=== PATIENT | female | born 1995 | race American Indian/Alaskan Native ===

== ENCOUNTER 2020-06-04 18:27 | Emergency (ER) | payer MEDICAID ==
--- NOTE | 2020-06-04 19:04 | Emergency Department Report ---
Blank Doc - Documentation Documentation: 25-year-old female that presents with heavy vaginal bleeding and fatigue. This initial assessment/diagnostic orders/clinical plan/treatment(s) is/are subject to change based on patient's health status, clinical progression and re- assessment by fellow clinical providers in the ED. Further treatment and workup at subsequent clinical providers discretion. Patient/guardians urged not to elope from the ED as their condition may be serious if not clinically assessed and managed. Initial orders include: 1- Patient sent to [facility] for further evaluation and treatment 2- labs r/o anemia
[2020-06-04 19:05] VITALS: BP 110/63
[2020-06-04 19:52] LABS: Bilirubin,Urine NEG (Negative); Blood,Urine SM (Negative); Color,Urine Yellow (Yellow); Mucus,Urine 2+ /HPF; Protein,Urine <15 mg/dL mg/dL (Negative)
[2020-06-04 19:54] LABS: Basophils % (Auto) 0.6 % (0.0-1.8); Eosinophils # (Auto) 0.1 K/mm3 (0.0-0.4); Eosinophils % (Auto) 1.4 % (0.0-4.3); Hematocrit 32.9 % (30.3-42.9); Hemoglobin 10.9 gm/dl (10.1-14.3); Lymphocytes # (Auto) 2.1 K/mm3 (1.2-5.4); Lymphocytes % (Auto) 33.3 % (13.4-35.0); Mean Corpuscular HGB Conc 33 % (30-34); Mean Corpuscular Volume 93 fl (79-97); Monocytes # (Auto) 0.5 K/mm3 (0.0-0.8); Monocytes % (Auto) 8.1 % (0.0-7.3); Platelet Count 286 K/mm3 (140-440); Red Blood Count 3.54 M/mm3 (3.65-5.03); Red Cell Distribution Width 13.1 % (13.2-15.2)
[2020-06-04 20:01] LABS: BUN/Creatinine Ratio 20; Blood Urea Nitrogen 16 mg/dL (7-17); Calcium 9.2 mg/dL (8.4-10.2); Hemolysis Index 1
[2020-06-04] MEDS ORDERED: medroxyPROGESTERone ACETATE 5 MG TAB PO ONE (20:42)
--- NOTE | 2020-06-04 21:26 | Emergency Department Report ---
ED Female HPI - General Chief complaint: Vaginal Bleeding Stated complaint: HEAVY BLEEDING Time Seen by Provider: 06/04/20 19:02 Source: patient Mode of arrival: Ambulatory Limitations: No Limitations - History of Present Illness Initial comments: Patient is a A0 25-year-old -[place] female with no past medical history presents to the ED with complaint of acute onset persistent heavy vaginal bleeding for the last 12 hours with generalized weakness. Patient states that this is the first time she is having heavy menstrual cycle and that she has failed up to 10 pads in the last 12 hours. Patient states that she has an implanted Nexplanon on her left upper arm which was placed in 2018 and that since this was placed she has never had such heavy bleeding. Patient states that she has been dealing with a lot of family stress in the last 3 weeks and suspect this may be the cause of her heavy vaginal bleeding. Patient denies abdominal pain, syncope, headache, dizziness, nausea and vomiting, dysuria, urinary frequency and urgency, change in vision, vaginal discharge or low back pain, fever and chills. MD Complaint: vaginal bleeding -: Sudden, hour(s) (12) Location: other (vaginal) Radiation: non-radiating Severity: severe Severity scale (0 -10): 1 Quality: dull Consistency: intermittent Improves with: none Worsens with: none Are you Now?: No Last Menstrual Period: 05/30/19 EDC: 03/05/20 Associated Symptoms: denies other symptoms, vaginal bleeding. denies: abdominal pain, nausea/vomiting, fever/chills, headaches, loss of appetite, hematuria, rash, seizure, shortness of breath, syncope, weakness - Related Data Sexually active: Yes : 3 Para: 3 A: 0 Previous Rx's Medication Instructions Recorded Last Taken Type medroxyPROGESTERone ACETATE 10 mg PO DAILY #10 tablet 06/04/20 Unknown Rx [Medroxyprogesterone Acetate] Allergies Allergy/AdvReac Type Severity Reaction Status Date / Time No Known Allergies Allergy Unverified 06/04/20 19:05 ED Review of Systems ROS: Stated complaint: HEAVY BLEEDING Other details as noted in HPI Constitutional: denies: chills, fever Eyes: denies: eye pain, eye discharge, vision change ENT: denies: ear pain, throat pain Respiratory: denies: cough, shortness of breath, wheezing Cardiovascular: denies: chest pain, palpitations Endocrine: no symptoms reported Gastrointestinal: denies: abdominal pain, nausea, diarrhea Genitourinary: abnormal menses (heavy vaginal bleeding). denies: urgency, dysuria, discharge Musculoskeletal: denies: back pain, joint swelling, arthralgia Skin: denies: rash, lesions Neurological: denies: headache, weakness, paresthesias Psychiatric: denies: anxiety, depression Hematological/Lymphatic: denies: easy bleeding, easy bruising ED Past Medical Hx - Past Medical History Previous Medical History?: No - Surgical History Past Surgical History?: No - Social History Smoking Status: Never Smoker Substance Use Type: None - Medications Home Medications: Home Medications Medication Instructions Recorded Confirmed Last Taken Type medroxyPROGESTERone ACETATE 10 mg PO DAILY #10 tablet 06/04/20 Unknown Rx [Medroxyprogesterone Acetate] ED Physical Exam - General Limitations: No Limitations General appearance: alert, in no apparent distress - Head Head exam: Present: atraumatic, normocephalic, normal inspection - Eye Eye exam: Present: normal appearance, PERRL, EOMI Pupils: Present: normal accommodation - ENT ENT exam: Present: normal exam, normal orophraynx, mucous membranes moist, TM's normal bilaterally, normal external ear exam - Neck Neck exam: Present: normal inspection, full ROM - Respiratory Respiratory exam: Present: normal lung sounds bilaterally. Absent: respiratory distress, wheezes, rales, rhonchi, chest wall tenderness, accessory muscle use, decreased breath sounds, prolonged expiratory - Cardiovascular Cardiovascular Exam: Present: regular rate, normal rhythm, normal heart sounds. Absent: systolic murmur, diastolic murmur, rubs, gallop - GI/Abdominal GI/Abdominal exam: Present: soft, normal bowel sounds. Absent: tenderness, guarding, hyperactive bowel sounds, hypoactive bowel sounds, organomegaly - Bi-manual exam: Present: other (Pelvic exam deferred, patient preference) - Extremities Exam Extremities exam: Present: normal inspection, full ROM, normal capillary refill - Back Exam Back exam: Present: normal inspection, full ROM. Absent: tenderness, CVA ten derness (R), CVA tenderness (L), muscle spasm, vertebral tenderness - Neurological Exam Neurological exam: Present: alert, oriented X3, CN II-XII intact, normal gait, reflexes normal - Psychiatric Psychiatric exam: Present: normal affect, normal mood - Skin Skin exam: Present: warm, dry, intact, normal color. Absent: rash ED Course Vital Signs 06/04/20 19:02 Temperature 98.1 F Pulse Rate 83 Respiratory 18 Rate Blood Pressure 110/63 O2 Sat by Pulse 100 Oximetry ED Medical Decision Making - Lab Data Result diagrams: 06/04/20 19:17 06/04/20 19:17 - Medical Decision Making This is a A0 25-year-old -[place] female with no past medical history presents to the ED with complaint of acute onset persistent heavy vaginal bleeding for the last 12 hours with generalized weakness. Patient states that this is the first time she is having heavy menstrual cycle and that she has failed up to 10 pads in the last 12 hours. Patient states that she has an implanted Nexplanon on her left upper arm which was placed in 2018 and that since this was placed she has never had such heavy bleeding. Patient states that she has been dealing with a lot of family stress in the last 3 weeks and suspect this may be the cause of her heavy vaginal bleeding. In the ED, patient is alert and oriented x3 and is not in distress. Patient resting comfortably while eating chips during the physical exam, and she is hemodynamically stable. Lab test results were reviewed and are all nonactionable. Patient was di scharged home on medications and advised to follow-up with [facility] physician in 3 to 5 days for reevaluation or return to the ED immediately if symptoms get worse. - Differential Diagnosis Dysfunctional uterine bleed; Menorrhagia; Metrorrhagia; UTI; Fibroids Critical care attestation.: If time is entered above; I have spent that time in minutes in the direct care of this critically ill patient, excluding procedure time. ED Disposition Clinical Impression: Menorrhagia with irregular cycle, Metrorrhagia, Dysfunctional uterine hemorrhage Disposition: DC-01 TO HOME OR SELFCARE Is pt being admited?: No Does the pt Need Aspirin: No Condition: Stable Instructions: Menorrhagia (ED), Dysfunctional Uterine Bleeding (ED) Additional Instructions: All lab test results are unremarkable. Therefore take medication as advised, drink plenty of fluids and follow-up with your [facility] physician in 3 to 5 days for reevaluation. Return to the ED immediately if symptoms get worse. Prescriptions: medroxyPROGESTERone ACETATE [Medroxyprogesterone Acetate] 10 mg PO DAILY #10 tablet Referrals: KATI SIM MD [Staff Physician] - 3-5 Days Forms: Work/School Release Form(ED) Time of Disposition: 21:28 Print Language: QATARI
== END 2020-06-04 21:40 | disposition home or self-care (01) ==
LOC: ED 18:27
DX: N92.0 Excessive and frequent menstruation with regular cycle (principal); N92.1 Excessive and frequent menstruation with irregular cycle; Z79.899 Other long term (current) drug therapy
CPT/HCPCS: 36415; 80048; 81001; 84703; 85025

== ENCOUNTER 2021-04-24 09:11 | Emergency (ER) | payer MEDICAID ==
[2021-04-24 09:30] VITALS: BP 113/72
[2021-04-24] MEDS ORDERED: LIDOCAINE (1%) 10 MG/1 ML VIAL 20 ML MDV INFILTRATI ONE (12:42)
[2021-04-24] MEDS ORDERED: TETANUS,DIPH,PERTUSS(ACELL) VACCINE 0.5 ML SYRINGE IM ONE (12:42)
--- NOTE | 2021-04-24 12:46 | Emergency Department Report ---
ED General Adult HPI - General Chief complaint: Wound/Laceration Stated complaint: cut on rt hand Time Seen by Provider: 04/24/21 11:51 Source: patient Mode of arrival: Ambulatory Limitations: No Limitations - History of Present Illness Initial comments: 26-year-old -[place] female patient presents with complaints of right hand laceration today. Patient states while at work, she fell and hit her hand on the side of the palate. She is unsure of her last tetanus vaccination. No numbness/tingling or difficulty moving the hand per patient. -: Sudden Severity scale (0 -10): 5 - Related Data Previous Rx's Medication Instructions Recorded Last Taken Type medroxyPROGESTERone ACETATE 10 mg PO DAILY #10 tablet 06/04/20 Unknown Rx [Medroxyprogesterone Acetate] Mupirocin [Bactroban 2% OINT] 1 applic TP TID 7 Days #1 tube 04/24/21 Unknown Rx Allergies Allergy/AdvReac Type Severity Reaction Status Date / Time No Known Allergies Allergy Verified 04/24/21 09:25 ED Review of Systems ROS: Stated complaint: cut on rt hand Other details as noted in HPI Musculoskeletal: denies: joint swelling, arthralgia Skin: denies: change in color Neurological: denies: numbness, paresthesias ED Past Medical Hx - Past Medical History Previous Medical History?: No - Surgical History Past Surgical History?: No - Social History Smoking Status: Never Smoker Substance Use Type: None - Medications Home Medications: Home Medications Medication Instructions Recorded Confirmed Last Taken Type medroxyPROGESTERone ACETATE 10 mg PO DAILY #10 tablet 06/04/20 Unknown Rx [Medroxyprogesterone Acetate] Mupirocin [Bactroban 2% OINT] 1 applic TP TID 7 Days #1 tube 04/24/21 Unknown Rx ED Physical Exam - General Limitations: No Limitations General appearance: alert, in no apparent distress - Head Head exam: Present: atraumatic, normocephalic - Eye Eye exam: Present: normal appearance. Absent: scleral icterus - Respiratory Respiratory exam: Absent: respiratory distress - Cardiovascular Cardiovascular Exam: Present: regular rate - Neurological Exam Neurological exam: Present: alert, oriented X3, normal gait - Psychiatric Psychiatric exam: Present: normal affect, normal mood - Skin Skin exam: Present: warm, dry, normal color. Absent: intact (Approximately 2 cm laceration noted to right little medial palm without obvious foreign body, swelling, or active bleeding; patient has full range of motion of the hand and fingers and normal perfusion), rash ED Course Vital Signs 04/24/21 09:28 Temperature 98.7 F Pulse Rate 71 Respiratory 18 Rate Blood Pressure 113/72 [Right] O2 Sat by Pulse 97 Oximetry - Laceration /Wound Repair Hand Wound's Depth, Shape: linear Wound Explored: clean Irrigated w/ Saline (ccs): 60 Anesthesia: 1% Lidocaine Volume Anesthetic (ccs): 4 Wound Repaired With: sutures Number of Sutures: 5 (Continuous) Layer Closure?: No Sterile Dressing Applied?: Yes Progress: Minimal bleeding occurred. Patient tolerated procedure well without any immediate complications. ED Medical Decision Making - Medical Decision Making 40-year-old -[place] female patient presents with complaints of left upper thigh pain and groin pain x5 days. She reports the pain feels similar to when she had a DVT 4 years ago. She is not currently on blood thinners. She denies any leg swelling, recent long travel, chest pain/shortness of breath/hemoptysis, difficulty moving her leg, numbness/tingling/weakness in the leg. Or injury to the leg. She states the pain is achy and rates it as a 5/10 in severity. Pain occurs mostly with movement and to touch. Patient also admits to some urinary frequency over the past few days without dysuria, hematuria, vaginal discharge, or dyspareunia. Laceration repaired patient tolerated procedure well without any immediate complications. Tetanus vaccine updated today. Prescription for mupirocin given. Discussed wound care and signs and symptoms that should prompt immediate return to the emergency department in detail with patient who verbalized understanding. She is well-appearing, her vitals are within normal limits, she is stable for discharge home. Critical care attestation.: If time is entered above; I have spent that time in minutes in the direct care of this critically ill patient, excluding procedure time. ED Disposition Clinical Impression: Laceration of right hand Disposition: DC-01 TO HOME OR SELFCARE Is pt being admited?: No Condition: Stable Instructions: Sutured Wound Care, [id number] Additional Instructions: Return to the emergency department in 10 days for suture removal Prescriptions: Mupirocin [Bactroban 2% OINT] 1 applic TP TID 7 Days #1 tube
== END 2021-04-24 14:07 | disposition home or self-care (01) ==
LOC: ED 09:11
DX: S61.411A Laceration without foreign body of right hand, initial encounter (principal); Z79.899 Other long term (current) drug therapy; W22.8XXA Striking against or struck by other objects, initial encounter; Y93.89 Activity, other specified; Y92.89 Other specified places as the place of occurrence of the external cause; Y99.8 Other external cause status
CPT/HCPCS: 90471; 90715